=== PATIENT | female | born 1970 | race Caucasian/White ===

== ENCOUNTER 2016-10-13 21:12 | Emergency (ER) | payer SELFPAY ==
[~2016-10-13] VITALS: Ht 170.2 cm; Wt 56.0 kg
[~2016-10-13 21:12] MED LIST: BENT20TA PO; CARA1TAB6 PO; ZANT300T PO
[2016-10-13 21:14] VITALS: BP 125/74; PULSE 96; RESP 18; TEMP 98.2; O2SAT 98
[2016-10-13] MEDS ORDERED: AMOX500C PO (21:40)
[2016-10-13] MEDS ORDERED: PERI0.126 SWISH-SPIT (21:40)
--- NOTE | 2016-10-13 21:43 | PD ---
HPI Chief Complaint: Oral / Dental Pain or Problem Time Seen by Provider: 21:41 Travel History International Travel<30 days: No Contact w/Intl Traveler<30days: No Traveled to known affect area: No History of Present Illness HPI 46-year-old white female presents to emergency Department with complaints of right jaw swelling after dental extraction on Friday. Pain is mild. She is currently taking Lortab for pain. No antibiotic. No fever chills. PFSH Past Medical History Blood Disorders: No Bipolar Disorder: Yes Anxiety: No Depression: Yes Cancer: No Cardiovascular Problems: No Cerebrovascular Accident: No Diabetes: No Diminished Hearing: No Endocrine: No Gastrointestinal Disorders: Yes (ULCERATIVE COLITIS) GERD: No Genitourinary: No Headaches: Yes Hepatitis: No Hiatal Hernia: No Immune Disorder: No Implanted Vascular Access Dvce: No Musculoskeletal: No Neurologic: Yes Psychiatric: Yes Reproductive: No Respiratory: No Immunizations Current: Yes Migraines: Yes Seizures: Yes Ulcer: No Menopausal: No : 2 Para: 2 Tubal Ligation: Yes Past Surgical History Abdominal Surgery: Yes (LUCILLE) AICD: No Appendectomy: No Arteriovenous Shunt: No Cardiac Surgery: No Section: Yes (x 1) Cholecystectomy: Yes Ear Surgery: No Endocrine Surgery: No Eye Surgery: No Genitourinary Surgery: No Gynecologic Surgery: Yes (TUBAL) Insulin Pump: No Joint Replacement: No Neurologic Surgery: No Oral Surgery: No Pacemaker: No Thoracic Surgery: No Other Surgery: Yes Social History Alcohol Use: No Tobacco Use: Yes (1ppd) Substance Use: Yes (marijuana ) Allergies-Medications (Allergen,Severity, Reaction): Coded Allergies: Protonix (Verified Allergy, Intermediate, Headache, 10/13/16) DHE 45 (Verified Allergy, Mild, 10/13/16) Phenergan (Verified Allergy, Mild, ANXIETY, 10/13/16) Compazine (Verified Adverse Reaction, Severe, ANXIOUS, IRRITABLE, 10/13/16) Caffeine (Verified Adverse Reaction, Mild, HEADACHE, 10/13/16) Reported Meds & Prescriptions Reported Meds & Active Scripts Active Review of Systems Except as stated in HPI: all other systems reviewed are Neg Physical Exam Narrative GENERAL: Well-developed, well-nourished in no acute distress. Nontoxic appearing. HEAD: Normocephalic, there is minimal swelling to the right mandible. EYES: Pupils equal round and reactive. Extraocular motions intact. No scleral icterus. No injection or drainage. ENT: TMs clear without erythema. The external auditory canals clear. Nose: clear . Posterior pharynx is pink and moist. No tonsillar edema or exudate. Uvula midline. Airway patent. Patient has a dental extraction in the right lower mandible. Suture place. No drainage. Mild erythema gingival edema. No drainage. NECK: Trachea midline.Supple, nontender, moves head freely. No central bony tenderness or spasm. CARDIOVASCULAR: Regular rate and rhythm without murmurs, gallops, or rubs. RESPIRATORY: Clear to auscultation. Breath sounds equal bilaterally. No wheezes , rales, or rhonchi. GASTROINTESTINAL: Abdomen soft, non-tender, nondistended. No hepato-splenomegaly , or palpable masses. No guarding. EXTREMITIES: No clubbing, cyanosis, or edema. No joint tenderness, effusion, or edema noted. BACK: Nontender without deformity or crepitance. No flank tenderness. Data Data Last Documented VS Vital Signs Date Time Temp Pulse Resp B/P Pulse Ox O2 Delivery O2 Flow Rate FiO2 10/13/16 21:14 98.2 96 18 125/74 98 Orders Amoxicillin (Trimox) (10/13/16 21:45) MDM Medical Decision Making Medical Screen Exam Complete: Yes Emergency Medical Condition: Yes Medical Record Reviewed: Yes Differential Diagnosis MDM: Moderate Differential diagnoses: Dental abscess, dental caries, osteitis, cellulitis Narrative Course Patient's given amoxicillin 1 g by mouth. This is postop swelling Diagnosis Primary Impression: postop swelling Additional Impression: recent dental extraction Patient Instructions: General Instructions Additional Instructions: Rest. Saltwater gargles. Lovilia oil on cotton balls. 3 Advil every 6 hours. Amoxicillin and Peridex. follow-up with a dentist as soon as possible. And return to the ER if any problems. Med/Other Pt SpecificInfo: Prescription(s) given Scripts Chlorhexidine Gluconate (Mouth) Liq (Peridex Liq)0.12% Soln10 Ml SWISH-SPIT Q8HR #[id number] ML Prov:Gilmar Polk MD 10/13/16 Amoxicillin 500 Mg [id number] Mg PO TID #30 CAP Prov:Gilmar Polk MD 10/13/16 Disposition: 01 DISCHARGE HOME Condition: Stable Catracho Herrera Oct 13, 2016 21:43
[2016-10-13] MEDS ORDERED: AMOXICILLIN (TRIHYDRATE) 500 MG CAP PO ONE (21:45)
== END 2016-10-13 21:53 | disposition home or self-care (01) ==
LOC: NEPB 21:12
DX: R60.0 Localized edema (principal); Z98.818 Other dental procedure status
CPT/HCPCS: 99282

== ENCOUNTER 2016-10-20 13:05 | Emergency (ER) | payer SELFPAY ==
[~2016-10-20] VITALS: Ht 165.1 cm; Wt 60.0 kg
[~2016-10-20 13:05] MED LIST changes: +AMOX500C PO; -BENT20TA PO; -CARA1TAB6 PO; +PERI0.126 SWISH-SPIT; -ZANT300T PO
[2016-10-20 13:13] VITALS: BP 153/65; PULSE 106; RESP 24; TEMP 97.6; O2SAT 95
--- NOTE | 2016-10-20 13:47 | PD ---
HPI Chief Complaint: Psychiatric Symptoms Time Seen by Provider: 13:42 Travel History International Travel<30 days: No Contact w/Intl Traveler<30days: No Traveled to known affect area: No History of Present Illness HPI 46-year-old female that presents to the ED for evaluation of psychiatric illness. Patient comes here voluntarily for evaluation of bipolar disorder. Per patient she's been off her medications for almost 4 years now. Per patient she has no insurance and asked what she doesn't have any follow-up. Patient has no doctor. Per patient she's been feeling more stressed and anxious. Per patient and her son told her today that she should get evaluated for this and this is the reason she came here. She denies any suicidal or homicidal ideation but she does appear to be very anxious and on my examination she was crying. 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 She states that her tooth for which she was seen here just last week has improved. She states that she does abuse marijuana but denies any other substance abuse. Per patient her symptoms are moderate. Per patient she feels more stress and she feels more depressed. She states that she drinks on occasion. She denies any hallucinations. No recent injuries. She denies any other medical complaint at this time. PFSH Past Medical History Blood Disorders: No Bipolar Disorder: Yes Anxiety: No Depression: Yes Cancer: No Cardiovascular Problems: No Cerebrovascular Accident: No Diabetes: No Diminished Hearing: No Endocrine: No Gastrointestinal Disorders: Yes (ULCERATIVE COLITIS) GERD: No Genitourinary: No Headaches: Yes Hepatitis: No Hiatal Hernia: No Immune Disorder: No Implanted Vascular Access Dvce: No Musculoskeletal: No Neurologic: Yes Psychiatric: Yes (BIPOLAR) Reproductive: No Respiratory: No Immunizations Current: Yes Migraines: Yes Seizures: Yes Ulcer: No ?: Not LMP: SEP 2016 Menopausal: No : 2 Para: 2 Tubal Ligation: Yes Past Surgical History Abdominal Surgery: Yes (LUCILLE) AICD: No Appendectomy: No Arteriovenous Shunt: No Cardiac Surgery: No Section: Yes (x 1) Cholecystectomy: Yes Ear Surgery: No Endocrine Surgery: No Eye Surgery: No Genitourinary Surgery: No Gynecologic Surgery: Yes (TUBAL) Insulin Pump: No Joint Replacement: No Neurologic Surgery: No Oral Surgery: No Pacemaker: No Thoracic Surgery: No Other Surgery: Yes Social History Alcohol Use: No Tobacco Use: Yes (1ppd) Substance Use: Yes (marijuana ) Allergies-Medications (Allergen,Severity, Reaction): Coded Allergies: Protonix (Verified Allergy, Intermediate, Headache, 10/20/16) DHE 45 (Verified Allergy, Mild, 10/20/16) Phenergan (Verified Allergy, Mild, ANXIETY, 10/20/16) Compazine (Verified Adverse Reaction, Severe, ANXIOUS, IRRITABLE, 10/20/16) Caffeine (Verified Adverse Reaction, Mild, HEADACHE, 10/20/16) Reported Meds & Prescriptions Reported Meds & Active Scripts Active No Active Prescriptions or Reported Medications Review of Systems General / Constitutional: No: Fever, Chills, Weight Gain, Weight Loss, Other Eyes: No: Diploplia, Blurred Vision, Photophobia, Drainage, Redness, Foreign Body Sensation, Pain, Tearing, Blind Spots, Visual changes, Blindness, Other HENT: No: Headaches, Vertigo, Lightheadedness, Sore Throat, Rhinitis, Rhinorrhea, Congestion, Nosebleed, Neck Stiffness, Neck Pain, Masses, Gingival Bleeding, Dental Difficulties, Ear Discharge, Earache, Other Cardiovascular: No: Chest Pain or Discomfort, Palpitations, Irregular Rhythm, Tachycardia, Diaphoresis, Syncope, Dyspnea on exertion, Varicosities, Edema, Cyanosis, Varicosities, Phlebitis, Claudication, Other Respiratory: No: Cough, Shortness of Breath, Wheezing, Sneezing, Orthopnea, Hemoptysis, Stridor, Night Sweats, Pleuritic Pain, Other Gastrointestinal: No: Nausea, Vomiting, Diarrhea, Abdominal Pain, Hematemesis, Hematochezia, Constipation, Changes in Bowel Habits, Indigestion, Dysphagia, Loss of Appetite, Other Genitourinary: No: Urgency, Frequency, Dysuria, Nocturia, Hematuria, Decreased Urinary Output, Oliguria, Hesitancy, Dribbling, Incontinence, Pelvic Pain, Flank Pain, Dyspareunia, Discharge, Dysmenorrhea, Menorrhagia, Metorrhagia, Vaginal Bleeding, Other Musculoskeletal: No: Myalgias, Arthralgias, Limited ROM, Weakness, Cramping, Edema, Pain, Atrophy, Other Skin: No Rash, No Itching, No Dryness, No Lumps, No Hives, No Change in Pigmentation, No Change in nails, No Alopecia, No Lesions, No Breast Lumps, No Breast Tenderness, No Breast Swelling, No Other Neurologic: No: Weakness, Dizziness, Syncope, Focal Abnormalities, Coordination Problem, Tremor, Ataxia, Headache, Change in Mentation, Slurred Speech, Paresthesia, Incontinence, Seizures, Sensory Disturbance, Other Psychiatric: Positive: Anxiety, Depression, Mood Disorder, Substance Abuse, No : Suicidal Ideations, Disorder of Thought, Homicidal Ideation, Other Endocrine: No: Heat Intolerance, Cold Intolerance, Polyuria, Polydipsia, Other Hematologic/Lymphatic: No: Easy Bruising, Lymph Node Enlargement, Other Physical Exam Narrative GENERAL: SKIN: Warm and dry. HEAD: Atraumatic. Normocephalic. EYES: Pupils equal and round. No scleral icterus. No injection or drainage. ENT: No nasal bleeding or discharge. Mucous membranes pink and moist. Tongue is midline. No uvula deviation. NECK: Trachea midline. No JVD. CARDIOVASCULAR: Regular rate and rhythm. No murmurs, S3, S4. RESPIRATORY: No accessory muscle use. Clear to auscultation. Breath sounds equal bilaterally. GASTROINTESTINAL: Abdomen soft, non-tender, nondistended. Hepatic and splenic margins not palpable. MUSCULOSKELETAL: Extremities without clubbing, cyanosis, or edema. No obvious deformities. Full range of motion of the upper and lower extremities bilaterally. 2+ pulses bilaterally. NEUROLOGICAL: Awake and alert. No obvious cranial nerve deficits. Motor grossly within normal limits. Five out of 5 muscle strength in the arms and legs. Normal speech. PSYCHIATRIC: Anxious and depressed mood and affect; insight and judgment normal. Data Data Last Documented VS Vital Signs Date Time Temp Pulse Resp B/P Pulse Ox O2 Delivery O2 Flow Rate FiO2 10/20/16 16:43 85 16 92/51 98 Room Air 10/20/16 13:13 97.6 Orders Complete Blood Count With Diff (10/20/16 13:24) Comprehensive Metabolic Panel (10/20/16 13:24) Psych Screen (10/20/16 13:24) Drug Screen, Random Urine (10/20/16 13:24) Alcohol (Ethanol) (10/20/16 13:24) Labs Laboratory Tests Test 10/20/16 10/20/16 13:35 13:38 Urine Opiates Screen NEG Urine Barbiturates Screen NEG Urine Amphetamines Screen NEG Urine Benzodiazepines Screen POS Urine Cocaine Screen NEG Urine Cannabinoids Screen POS White Blood Count 6.4 TH/MM3 Red Blood Count 4.78 MIL/MM3 Hemoglobin 13.7 GM/DL Hematocrit 40.9 % Mean Corpuscular Volume 85.7 FL Mean Corpuscular Hemoglobin 28.7 PG Mean Corpuscular Hemoglobin 33.5 % Concent Red Cell Distribution Width 15.1 % Platelet Count 263 TH/MM3 Mean Platelet Volume 7.6 FL Neutrophils (%) (Auto) 66.5 % Lymphocytes (%) (Auto) 23.9 % Monocytes (%) (Auto) 7.3 % Eosinophils (%) (Auto) 1.5 % Basophils (%) (Auto) 0.8 % Neutrophils # (Auto) 4.3 TH/MM3 Lymphocytes # (Auto) 1.5 TH/MM3 Monocytes # (Auto) 0.5 TH/MM3 Eosinophils # (Auto) 0.1 TH/MM3 Basophils # (Auto) 0.0 TH/MM3 CBC Comment DIFF FINAL Differential Comment Sodium Level 141 MEQ/L Potassium Level 3.3 MEQ/L Chloride Level 105 MEQ/L Carbon Dioxide Level 27.3 MEQ/L Anion Gap 9 MEQ/L Blood Urea Nitrogen 13 MG/DL Creatinine 0.88 MG/DL Estimat Glomerular Filtration 69 ML/MIN Rate Random Glucose 75 MG/DL Calcium Level 9.3 MG/DL Total Bilirubin 0.9 MG/DL Aspartate Amino Transf 17 U/L (AST/SGOT) Alanine Aminotransferase 18 U/L (ALT/SGPT) Alkaline Phosphatase 85 U/L Total Protein 7.7 GM/DL Albumin 4.1 GM/DL Ethyl Alcohol Level LESS THAN 3 MG/DL MDM Medical Decision Making Medical Screen Exam Complete: Yes Emergency Medical Condition: Yes Medical Record Reviewed: Yes Interpretation(s) CBC & BMP Diagram 10/20/16 13:38 tox positive for cannabinoids and benzos Differential Diagnosis Depression versus suicidal ideation versus anxiety versus adjustment disorder versus mood disorder versus bipolar disorder versus schizophrenia versus paranoid disorder versus psychosis versus substance abuse versus alcohol abuse versus alcohol induced psychosis versus homicidality addition versus cutting versus personality disorder Narrative Course 46-year-old female that presents to the ED for evaluation of voluntary psych evaluation. Patient was properly examined and was found to have signs and symptoms very consistent what appears to be psychiatric illness. No sign of acute medical distress. Patient does appear to be somewhat stressed and depressed at this time. She denies any suicidal or homicidal ideation. Patient came here voluntarily. Patient will have blood work and voluntary psych screening. Patient was medically cleared. Okay to be seen by psych. Mental health screening was discussed with the patient. At 1730 patient adamant about leaving. Patient denies any suicidal or homicidal ideation. Patient does not want to wait to go to resume and does not want to go to resume. She wants to go home. At this time I do not feel that the patient requires Jeter acted as she does not meet any Jeter act criteria. She desaturated to herself or anybody. Patient is here voluntarily. She was made aware of her options outpatient. Told to follow-up with outpatient sources. See ED for worsening symptoms. Diagnosis Primary Impression: Bipolar 1 disorder Patient Instructions: General Instructions Additional Instructions: F/u SMA or outpatient resources. See ED if worst. Med/Other Pt SpecificInfo: No Meds Exist/No RX given Scripts No Active Prescriptions or Reported Meds Disposition: 01 DISCHARGE HOME Condition: Stable Ric Reddy Oct 20, 2016 13:47
[2016-10-20 13:57] LABS: AUTOMATED NEUTROPHIL # 4.3 TH/MM3 (1.8-7.7); BASOPHIL % 0.8 % (0.0-2.0); EOSINOPHIL # 0.1 TH/MM3 (0-0.4); EOSINOPHIL % 1.5 % (0.0-4.0); HEMATOCRIT 40.9 % (35.0-46.0); HEMO FLAGS DIFF FINAL; LYMPH % 23.9 % (9.0-44.0); LYMPHOCYTE # 1.5 TH/MM3 (1.0-4.8); MEAN CELL VOLUME 85.7 FL (80.0-100.0); MEAN CORPUSCULAR HEMOGLOBIN 28.7 PG (27.0-34.0); MEAN CORPUSCULAR HGB CONC 33.5 % (32.0-36.0); MONO % 7.3 % (0.0-8.0); NEUT % 66.5 % (16.0-70.0); PLATELET COUNT 263 TH/MM3 (150-450); RED BLOOD COUNT 4.78 MIL/MM3 (4.00-5.30); RED CELL DISTRIBUTION WIDTH 15.1 % (11.6-17.2); WHITE BLOOD COUNT 6.4 TH/MM3 (4.0-11.0)
[2016-10-20 14:03] LABS: AMPHETAMINE, URINE NEG (NEG); BARBITURATES, URINE NEG (NEG); COCAINE, URINE NEG (NEG)
[2016-10-20 14:09] LABS: ALT (GPT) 18 U/L (10-53); ANION GAP 9 MEQ/L (5-15); AST (GOT) 17 U/L (15-37); BICARBONATE 27.3 MEQ/L (21.0-32.0); BLOOD UREA NITROGEN 13 MG/DL (7-18); CHLORIDE 105 MEQ/L (98-107); GLOMERULAR FILTRATION RATE 69 ML/MIN (>89); POTASSIUM 3.3 MEQ/L (3.5-5.1); SODIUM (NA) 141 MEQ/L (136-145)
[2016-10-20 14:11] LABS: ALKALINE PHOSPHATASE 85 U/L (45-117); TOTAL BILIRUBIN ADULT 0.9 MG/DL (0.2-1.0)
[2016-10-20 16:43] VITALS: BP 92/51; PULSE 85; RESP 16; O2SAT 98
== END 2016-10-20 17:45 | disposition home or self-care (01) ==
LOC: NEPE 13:05
DX: F31.89 Other bipolar disorder (principal); F17.210 Nicotine dependence, cigarettes, uncomplicated; F12.10 Cannabis abuse, uncomplicated
CPT/HCPCS: 80053; 80307; 85025; 99284

== ENCOUNTER 2016-10-20 22:38 | Emergency (ER) | payer SELFPAY ==
[~2016-10-20] VITALS: Ht 165.1 cm; Wt 60.0 kg
[2016-10-20 22:40] VITALS: BP 133/62; PULSE 86; RESP 16; TEMP 98; O2SAT 97
--- NOTE | 2016-10-20 23:58 | PD ---
HPI Chief Complaint: Psychiatric Symptoms Time Seen by Provider: 23:39 Travel History International Travel<30 days: No Contact w/Intl Traveler<30days: No Traveled to known affect area: No History of Present Illness HPI 46yo F with PMH of bipolar disorder and migraine headache was just here earlier today for evaluation because she was feeling anxious and had left prior to psych evaluation. Pt had labs drawn and urine sent and was medically cleared for psych evaluation when she decided to leave. She came voluntarily so she was able to leave. Pt is now stating she wants to hurt herself but does not have a plan. Denies any hallucinations. Denies any fever, cough, chest pain, sob, n/v, abdominal pain, focal weakness or numbness. PFSH Past Medical History Blood Disorders: No Bipolar Disorder: Yes Anxiety: No Depression: Yes Cancer: No Cardiovascular Problems: No Cerebrovascular Accident: No Diabetes: No Diminished Hearing: No Endocrine: No Gastrointestinal Disorders: Yes (ULCERATIVE COLITIS) GERD: No Genitourinary: No Headaches: Yes Hepatitis: No Hiatal Hernia: No Immune Disorder: No Implanted Vascular Access Dvce: No Musculoskeletal: No Neurologic: Yes Psychiatric: Yes (BIPOLAR) Reproductive: No Respiratory: No Immunizations Current: Yes Migraines: Yes Seizures: Yes Ulcer: No ?: Not Menopausal: No : 2 Para: 2 Tubal Ligation: Yes Past Surgical History Abdominal Surgery: Yes (LUCILLE) AICD: No Appendectomy: No Arteriovenous Shunt: No Cardiac Surgery: No Section: Yes (x 1) Cholecystectomy: Yes Ear Surgery: No Endocrine Surgery: No Eye Surgery: No Genitourinary Surgery: No Gynecologic Surgery: Yes (TUBAL) Insulin Pump: No Joint Replacement: No Neurologic Surgery: No Oral Surgery: No Pacemaker: No Thoracic Surgery: No Other Surgery: Yes Social History Alcohol Use: No Tobacco Use: Yes (1ppd) Substance Use: Yes (MARIJUANA) Allergies-Medications (Allergen,Severity, Reaction): Coded Allergies: Protonix (Verified Allergy, Intermediate, Headache, 10/20/16) DHE 45 (Verified Allergy, Mild, 10/20/16) Phenergan (Verified Allergy, Mild, ANXIETY, 10/20/16) Compazine (Verified Adverse Reaction, Severe, ANXIOUS, IRRITABLE, 10/20/16) Caffeine (Verified Adverse Reaction, Mild, HEADACHE, 3/12/17) Reported Meds & Prescriptions Reported Meds & Active Scripts Active No Active Prescriptions or Reported Medications Review of Systems Except as stated in HPI: all other systems reviewed are Neg Physical Exam Narrative GENERAL: 46yo F not in distress. At times tearful and at times angry. SKIN: Warm and dry. HEAD: Atraumatic. Normocephalic. EYES: Pupils equal and round at 3mm bilaterally. EOMI. No scleral icterus. No injection or drainage. NECK: Trachea midline. No JVD. CARDIOVASCULAR: Regular rate and rhythm. No murmur appreciated. RESPIRATORY: No accessory muscle use. Clear to auscultation. Breath sounds equal bilaterally. GASTROINTESTINAL: Abdomen soft, non-tender, nondistended. No rebound tenderness or guarding. MUSCULOSKELETAL: No obvious deformities. No clubbing. No cyanosis. No edema. NEUROLOGICAL: Awake and alert. No obvious cranial nerve deficits. Motor grossly within normal limits. Normal speech. PSYCHIATRIC: Labile mood; pt becomes upset that we keep asking the same questions. Data Data Last Documented VS Vital Signs Date Time Temp Pulse Resp B/P Pulse Ox O2 Delivery O2 Flow Rate FiO2 10/20/16 23:35 18 10/20/16 22:40 98.0 86 133/62 97 Room Air Orders Psych Screen (10/20/16 23:50) MDM Medical Decision Making Medical Screen Exam Complete: Yes Emergency Medical Condition: Yes Differential Diagnosis Bipolar disorder vs. depression vs. psychosis vs. drug induced psychosis. Narrative Course 46yo F with bipolar disorder presents to the ED because she needs help. Pt was just here this morning and medically cleared for psych evaluation. Pt had labs drawn this morning and does not want more lab drawn. I believe that it is reasonable to use today's labs which I reviewed. No leukocytosis. K was 3.3 and pt is tolerating PO. Urine drug screen was positive for benzodiazepine and cannabinoids. Pt does not appear clinically intoxicated to me. No signs of trauma. VS wnl. Pt is medically clear for psych evaluation. Although pt came in voluntarily, she is stating that she has suicidal ideations and want to hurt herself. It is also noted in the nursing triage note. She did state that to me but does not have a plan. She does appear to have labile mood and reports history of bipolar disorder. She states she is not taking any medications for her bipolar disorder. I will place her under Jeter Act since she is a threat to herself until psych evaluates her. Diagnosis Primary Impression: Bipolar 1 disorder Scripts No Active Prescriptions or Reported Meds Maria Antonia Castañeda DO Oct 20, 2016 23:58
[2016-10-21 01:58] VITALS: BP 100/50; PULSE 69; RESP 18; TEMP 98.1; O2SAT 99
[2016-10-21 06:41] VITALS: BP 101/50; PULSE 68; RESP 18; O2SAT 100
[2016-10-21 07:20] VITALS: BP 108/67; PULSE 81; RESP 16; TEMP 98; O2SAT 99
[2016-10-21 10:00] VITALS: BP 102/69; PULSE 67; RESP 16; TEMP 97.8; O2SAT 99
--- NOTE | 2016-10-21 14:45 | PD.CONS ---
Provisional Diagnosis [place] I. Emotionally unstable borderline personality disorder and adult F 60.3, marijuana abuse by history History of Present Illness Service Psychiatry Consult Requested By EDMD Reason for Consult Corona montez Primary Care Physician No Primary Care Physician HPI Patient is a 46-year-old white female who was seen here yesterday homeless assessed and discharge urine toxicology at bedtime positive for marijuana and benzodiazepines. Patient returns here today voluntarily asking for help perhaps some degree of manipulation related to living situation was Corona acted in the ED today by Dr. Castañeda dated 10/21/12 Corona montez reviewed basically stating the patient appeared to have a labile mood and said she is suicidal. Patient again being screened in ED. Patient seen by me with nurse Brian and medical student Isamar. Patient has a labile angry irritable demanding entitled white female somewhat disheveled in appearance stating a lifelong history of chaos relationship issues. Stating she's been here [place] since about 2005. It appears she has been disowned by her family up in [place]. That she gave her child up to the child's father because she could not handle. She states she has never had successful treatment either by a psychiatrist or by counselors that she has no dejuan of them show something to do with them. It appears she was hospitalized Mr. Christiano montez a number of years ago but less their early Ms. been noncompliant with any medications. She denies any benefit from any medications. She does state he smokes marijuana every day as much as she can. In any event I feel this is a marked degree of manipulation with this lady she made some vague suicidal statements I feel this is an effort to get a place to stay. When I questioned her validity she became anger at me and attempts to get into any details related to refuse became more angry and said that she is wish to be discharged. I did allow that. Braulio is also modicum of malingering. Thus I will lift the Jeter act allow the patient to be discharged herself to follow-up with Tavon Christiano montez. The been no Rx by me strong recommendation for and a. Strong recommendation voluntary substance abuse assessment Mr. Christiano montez when I mention the possibility of her participating and the [employer] outpatient community-based support groups she refused saying she does not like to talk in front of people Review of Systems Except as stated in HPI: all other systems reviewed are Neg Past Family Social History Coded Allergies: Protonix (Verified Allergy, Intermediate, Headache, 10/20/16) DHE 45 (Verified Allergy, Mild, 10/20/16) Phenergan (Verified Allergy, Mild, ANXIETY, 10/20/16) Compazine (Verified Adverse Reaction, Severe, ANXIOUS, IRRITABLE, 10/20/16) Caffeine (Verified Adverse Reaction, Mild, HEADACHE, 10/20/16) Past Medical History Unknown at this time though that appears to be a history of migraines No Active Prescriptions or Reported Meds Family History Patient is estranged from her family of origin and extended family Social History It appears patient does have place to stay with a male friend of her though she is unemployed at the present time his limited finances Patient's Strengths (min. 2) Patient verbal irritable access healthcare Physical Exam Patient medically cleared through ED exam reviewed and agreed with Vital Signs Vital Signs Date Time Temp Pulse Resp B/P Pulse Ox O2 Delivery O2 Flow Rate FiO2 10/21/16 10:00 97.8 67 16 102/69 99 10/21/16 07:20 Room Air Mental Status Examination Alert oriented angry irritable labile manipulative borderline female Appearance Somewhat disheveled wearing a bandanna over here Speech: Pressured, Rapid Orientation: x3 Memory: Impaired (describe) Thought Process: Logical, Linear Thought Content: Paranoid (mildly) Hallucination Type: None Attention and Concentration: Other (fair) Suicidal Ideation: No (made vague statements I feel this is more manipulative than legitimate) Previous Suicide Attempts: No Homicidal Ideation: No Previous Homicide Attempts: No Insight: Poor Affect: Other (increase range and intensity) Mood: Euthymic, Irritable Motor Activity: Normal gait Assessment & Plan Problem List: (1) Emotionally unstable borderline personality disorder in adult ICD Code: F60.3 (2) History of cannabis abuse ICD Code: Z87.898 Assessment & Plan At this time patient does not meet Jeter criteria will lift Jeter act. There is significant degree of borderline personality disorder manipulation and perhaps malingering. Strong recommendation voluntary assessment act subsequent abuse assessment related to stated marijuana abuse, follow-up mental health also through Estimated LOS: days Discharge Planning See above Request HC Surrog/Guard Advoc?: No Zay Smith MD Oct 21, 2016 14:45
== END 2016-10-21 14:27 | disposition home or self-care (01) ==
LOC: NEPA 22:38
DX: F60.3 Borderline personality disorder (principal); F12.10 Cannabis abuse, uncomplicated; Z59.0 Homelessness
CPT/HCPCS: 99283

== ENCOUNTER 2016-10-21 18:17 | Emergency (ER) | payer OTHER ==
--- NOTE | 2016-10-21 18:26 | PD ---
HPI Chief Complaint: ba Time Seen by Provider: 18:25 Travel History International Travel<30 days: No Contact w/Intl Traveler<30days: No Traveled to known affect area: No History of Present Illness HPI 46 year-old female presents to emergency department for evaluation a [place]. Patient has history of bipolar disorder and has been seen 2 times the last 2 days. Emergency department. She states that she is suicidal with an active plan. She states she has "at least 60 amitriptyline that she plans to take." Denies taking anything up to this point. Reports marijuana use and taking a benzo 2 days ago. Denies any acute medical needs. Note symptoms to report. PFSH Past Medical History Blood Disorders: No Bipolar Disorder: Yes Anxiety: No Depression: Yes Cancer: No Cardiovascular Problems: No Cerebrovascular Accident: No Diabetes: No Diminished Hearing: No Endocrine: No Gastrointestinal Disorders: Yes (ULCERATIVE COLITIS) GERD: No Genitourinary: No Headaches: Yes Hepatitis: No Hiatal Hernia: No Immune Disorder: No Implanted Vascular Access Dvce: No Musculoskeletal: No Neurologic: Yes Psychiatric: Yes (BIPOLAR) Reproductive: No Respiratory: No Immunizations Current: Yes Migraines: Yes Seizures: Yes Ulcer: No Menopausal: No : 2 Para: 2 Tubal Ligation: Yes Past Surgical History Abdominal Surgery: Yes (LUCILLE) AICD: No Appendectomy: No Arteriovenous Shunt: No Cardiac Surgery: No Section: Yes (x 1) Cholecystectomy: Yes Ear Surgery: No Endocrine Surgery: No Eye Surgery: No Genitourinary Surgery: No Gynecologic Surgery: Yes (TUBAL) Insulin Pump: No Joint Replacement: No Neurologic Surgery: No Oral Surgery: No Pacemaker: No Thoracic Surgery: No Other Surgery: Yes Social History Alcohol Use: No Tobacco Use: Yes (1ppd) Substance Use: Yes (MARIJUANA, BENZO'S) Allergies-Medications (Allergen,Severity, Reaction): Coded Allergies: Protonix (Verified Allergy, Intermediate, Headache, 10/21/16) DHE 45 (Verified Allergy, Mild, 10/21/16) Phenergan (Verified Allergy, Mild, ANXIETY, 10/21/16) Compazine (Verified Adverse Reaction, Severe, ANXIOUS, IRRITABLE, 10/21/16) Caffeine (Verified Adverse Reaction, Mild, HEADACHE, 10/21/16) Reported Meds & Prescriptions Reported Meds & Active Scripts Active No Active Prescriptions or Reported Medications Review of Systems Except as stated in HPI: all other systems reviewed are Neg Physical Exam Narrative GENERAL: Well-nourished, well-developed female patient, in no acute distress SKIN: Warm and dry. HEAD: Normocephalic. EYES: No scleral icterus. No injection or drainage. NECK: Supple, trachea midline. No JVD or lymphadenopathy. CARDIOVASCULAR: Regular rate and rhythm without murmurs, gallops, or rubs. RESPIRATORY: Breath sounds equal bilaterally. No accessory muscle use. GASTROINTESTINAL: Abdomen soft, non-tender, nondistended. MUSCULOSKELETAL: No cyanosis, or edema. BACK: Nontender without obvious deformity. No CVA tenderness. Data Data Orders Psych Screen (10/21/16 18:32) MDM Medical Decision Making Medical Screen Exam Complete: Yes Emergency Medical Condition: Yes Medical Record Reviewed: Yes Differential Diagnosis Mood disorder versus personality disorder versus adjustment reaction disorder Narrative Course 46-year-old female presents to emergency department for evaluation under a Jeter act. Patient appears without distress. She was discharged this morning after psychiatric screening and seems psychiatrist. Patient states that she should have never been discharged and she has an active plan for suicide. Labs were completed yesterday. Patient will be medically cleared at this time Mental health screening discussed with the patient. Psychiatric screen ordered. Diagnosis Primary Impression: Bipolar 1 disorder Scripts No Active Prescriptions or Reported Meds Condition: Sary Christian Oct 21, 2016 18:26
[2016-10-22 11:10] VITALS: BP 112/69; PULSE 80; RESP 18; TEMP 98.1; O2SAT 98
--- NOTE | 2016-10-22 12:54 | PD ---
History of Present Illness Chief Complaint: Psychiatric Symptoms Time Seen by Provider: 12:15 Travel History International Travel<30 Days: No Contact w/Intl Traveler<30days: No Known affected area: No Legal Status Legal Status: Jeter Act Jeter Act Signed By: Teddy Tim History of Present Illness: History of Present Illness HPI 46 year-old female with a reported history of bipolar disorder who presents to emergency department for evaluation of a Jeter initiated by [facility]. As per the BA report she "advised she wants to kill herself by running into traffic." Patient has been seen in ED 2 times in the last 2 days. per ED documentation included in this report " She states that she is suicidal with an active plan. She states she has "at least 60 amitriptyline that she plans to take." Denies taking anything up to this point. Reports marijuana use and taking a benzo 2 days ago." EMR is reviewed. Evaluation completed by Dr. Sal Smith is also reviewed. Last toxicology report is positive for benzos and cannabinoids. Patient was monitored in Ed and later in J pod. She presented with no behavioral concerns and no suicidality. This morning she is awake, alert, oriented. She is angry as she reports that she is missing her wallet and her telephone. She states that she does not know why the police brought her here and that she was in her house when " they knocked on my door and brought me here". She denies any suicidal or homicidal ideation, intent or plan. No psychosis. She goes on to state " I don't want any psychiatric treatment". She demands to be discharged from this facility as and states " you can't meet my dietary requests as I eat only natural food". Patient ias angry and demands that staff return her her money as well as get her a new phone. Staff has informed her of procedure to file for missing items. She refuses to accept a taxi voucher to get home. PFSH Past Medical History Blood Disorders: No Bipolar Disorder: Yes Anxiety: No Depression: Yes Cancer: No Cardiovascular Problems: No Cerebrovascular Accident: No Diabetes: No Diminished Hearing: No Endocrine: No Gastrointestinal Disorders: Yes (ULCERATIVE COLITIS) GERD: No Genitourinary: No Headaches: Yes Hepatitis: No Hiatal Hernia: No Immune Disorder: No Implanted Vascular Access Dvce: No Musculoskeletal: No Neurologic: Yes Psychiatric: Yes (BIPOLAR) Reproductive: No Respiratory: No Immunizations Current: Yes Migraines: Yes Seizures: Yes Ulcer: No Tetanus Vaccination: > 5 Years ?: Not Menopausal: No : 2 Para: 2 Tubal Ligation: Yes Past Surgical History Abdominal Surgery: Yes (LUCILLE) AICD: No Appendectomy: No Arteriovenous Shunt: No Cardiac Surgery: No Section: Yes (x 1) Cholecystectomy: Yes Ear Surgery: No Endocrine Surgery: No Eye Surgery: No Genitourinary Surgery: No Gynecologic Surgery: Yes (TUBAL) Insulin Pump: No Joint Replacement: No Neurologic Surgery: No Oral Surgery: No Pacemaker: No Thoracic Surgery: No Other Surgery: Yes Psychiatric History Psychiatric History Hx Psychiatric Treatment: REPORTS HX OF BEING DIAGNOSED WITH BIPOLAR, DEPRESSION AND EATING DISORDER. WAS LAST ADMITTED TO [facility] 4 YRS AGO, VOLUNTARILY. SHE WAS NOT IMPRESSED WITH THE CLEANLINESS AND INABILITY TO MEET HER DIETARY NEEDS. History of Inpatient Treatment: Yes Guns or firearms in home: No Social History Single female. Homeless but stays with a friend Hx Alcohol Use: No Hx Tobacco Use: Yes (1ppd) Hx Substance Use: Yes (MARIJUANA, BENZO'S) Substance Use Type: Marijuana, Benzos (Valium,Xanax) Hx of Substance Use Treatment: No Family Psychiatric History Patient does not provide Allergies-Medications (Allergen,Severity, Reaction): Coded Allergies: Protonix (Verified Allergy, Intermediate, Headache, 10/21/16) DHE 45 (Verified Allergy, Mild, 10/21/16) Phenergan (Verified Allergy, Mild, ANXIETY, 10/21/16) Compazine (Verified Adverse Reaction, Severe, ANXIOUS, IRRITABLE, 10/21/16) Caffeine (Verified Adverse Reaction, Mild, HEADACHE, 10/21/16) Reported Meds & Prescriptions Reported Meds & Active Scripts Active No Active Prescriptions or Reported Medications Review of Systems Except as stated in HPI: all other systems reviewed are Neg Exam Alert: Yes [place]: Person (ox4) Mood: Angry Affect: Other (congruent) Speech: Clear, Logical Eye Contact: Normal Memory Intact: Comment (not impaired) Delusions: No Suicidal: Ideation (negative) Homicidal: Ideation (negative) Insight/Judgement poor, not impaired. MDM Medical Decision Making Medical Record Reviewed: Yes Assessment/Plan 46 year old female who is under a BA for allegedly reporting suicidal ideation. At this time she denies that she had any intentions of harming herself and actually states that the police picked her up without her calling them. She is denying suicidal or homicidal ideation and she is refusing psychiatric care. She is demanding discharge from J pod. At this time she does not meet criteria for BA and will be discharged Orders Psych Screen (10/21/16 18:32) Diet Regular Basic (10/22/16 Breakfast) Diet Regular Basic (10/22/16 Lunch) Results Vital Signs Date Time Temp Pulse Resp B/P Pulse Ox O2 Delivery O2 Flow Rate FiO2 10/22/16 11:10 98.1 80 18 112/69 98 Room Air Diagnosis Primary Impression: Bipolar 1 disorder Psychiatrically Cleared: Yes Departure Forms: Tests/Procedures Patient Instructions: General Instructions, Mood Disorders (ED) Additional Instructions: FOLLOW UP OUT PATIENT AT [facility] AT [address] [facility] FOR [facility]SEL[facility] AND OR MEDICATION MANAGEMENT Prescriptions No Active Prescriptions or Reported Meds Disposition: DISCHARGE HOME Condition: Stable Brenda Tamez CHING Oct 22, 2016 12:54
== END 2016-10-22 13:08 | disposition home or self-care (01) ==
LOC: NEPA 18:17 → NEPJ 10-22 13:08
DX: F31.9 Bipolar disorder, unspecified (principal); F17.200 Nicotine dependence, unspecified, uncomplicated; Z86.59 Personal history of other mental and behavioral disorders; Z87.19 Personal history of other diseases of the digestive system; Z86.69 Personal history of other diseases of the nervous system and sense organs
CPT/HCPCS: 99283

== ENCOUNTER 2017-03-22 00:42 | Emergency (ER) | payer SELFPAY ==
[~2017-03-22] VITALS: Ht 165.1 cm; Wt 60.0 kg
[2017-03-22 00:56] VITALS: BP 110/66; PULSE 100; RESP 14; TEMP 98.4; O2SAT 98
[2017-03-22] MEDS ORDERED: IMIT100T PO (01:42)
[2017-03-22] MEDS ORDERED: LAMO100 PO (01:42)
[2017-03-22] MEDS ORDERED: PERM5CRE11 TOPICAL (01:58)
[2017-03-22] MEDS ORDERED: BACT800T5 PO (01:58)
--- NOTE | 2017-03-22 02:02 | PD ---
HPI Chief Complaint: Skin Problem Time Seen by Provider: 01:59 Travel History International Travel<30 days: No Contact w/Intl Traveler<30days: No Traveled to known affect area: No History of Present Illness HPI 46-year-old white female presents to emergency department with complaints of possible scabies. She states that she has had similar type symptoms in the past and was treated for scabies which resolved. She states that she has a pruritic rash with trailing on her arms and legs. She has multiple pets including cats and dogs. PFSH Past Medical History Blood Disorders: No Bipolar Disorder: Yes Anxiety: No Depression: Yes Cancer: No Cardiovascular Problems: No Cerebrovascular Accident: No Diabetes: No Patient Takes Glucophage: No Diminished Hearing: No Endocrine: No Gastrointestinal Disorders: Yes (ULCERATIVE COLITIS) GERD: No Genitourinary: No Headaches: Yes Hepatitis: No Hiatal Hernia: No Immune Disorder: No Implanted Vascular Access Dvce: No Musculoskeletal: No Neurologic: Yes Psychiatric: Yes (BIPOLAR) Reproductive: No Respiratory: No Immunizations Current: Yes Migraines: Yes Seizures: Yes Ulcer: No Influenza Vaccination: No ?: Unknown LMP: CURRENT Menopausal: No : 2 Para: 2 Tubal Ligation: Yes Past Surgical History Abdominal Surgery: Yes (LUCILLE) AICD: No Appendectomy: No Arteriovenous Shunt: No Cardiac Surgery: No Section: Yes (x 1) Cholecystectomy: Yes Ear Surgery: No Endocrine Surgery: No Eye Surgery: No Genitourinary Surgery: No Gynecologic Surgery: Yes (TUBAL) Insulin Pump: No Joint Replacement: No Neurologic Surgery: No Oral Surgery: No Pacemaker: No Thoracic Surgery: No Other Surgery: Yes Social History Alcohol Use: No Tobacco Use: Yes (1ppd) Substance Use: Yes (MARIJUANA, BENZO'S) Allergies-Medications (Allergen,Severity, Reaction): Coded Allergies: Protonix (Verified Allergy, Intermediate, Headache, 03/22/17) DHE 45 (Verified Allergy, Mild, 03/22/17) Phenergan (Verified Allergy, Mild, ANXIETY, 03/22/17) Compazine (Verified Adverse Reaction, Severe, ANXIOUS, IRRITABLE, 03/22/17) Caffeine (Verified Adverse Reaction, Mild, HEADACHE, 03/22/17) Reported Meds & Prescriptions Reported Meds & Active Scripts Active Bactrim DS (Sulfamethoxazole-Trimethoprim) 800-160 Mg Tab 1 Tab PO BID Elimite Topical (Permethrin) 5% Cream 1 Applic TOPICAL ONCE Reported Imitrex (Sumatriptan Succinate) 100 Mg Tab 100 Mg PO ONCE PRN If a satisfactory response has not been obtained at 2 hours, a second dose may be administered Lamictal (Lamotrigine) 100 Mg Tab 100 Mg PO BID Review of Systems Except as stated in HPI: all other systems reviewed are Neg Physical Exam Narrative GENERAL: This is a well-nourished, well-developed patient, in no apparent distress. SKIN: Patient has few macular papular lesions on the upper or lower extremities. She does have a few small trilling questional serpiginous trails. , ecchymoses or lesions. Warm and dry. HEAD: Atraumatic. Normocephalic. EYES: PERRL, EOMI, no discharge or injection. No scleral icterus. EARS: Clear NOSE: Nasal turbinates appear normal. THROAT: Mucosa pink and moist. Airway patent. NECK: Trachea midline. supple, moves head freely. LUNGS: Clear to auscultation. CV: Regular in rhythm. ABDOMEN: Soft nontender. EXT: No clubbing cyanosis or edema. Data Data Last Documented VS Vital Signs Date Time Temp Pulse Resp B/P Pulse Ox O2 Delivery O2 Flow Rate FiO2 03/22/17 00:56 98.4 100 14 110/66 98 Room Air MDM Medical Decision Making Medical Screen Exam Complete: Yes Emergency Medical Condition: Yes Medical Record Reviewed: Yes Differential Diagnosis Differential diagnosis: Scabies, contact dermatitis, folliculitis Narrative Course The patient is convinced that this is scabies. I'm not 100% fence. This may be a folliculitis. Patient be given Bactrim DS and Elimite Diagnosis Primary Impression: Folliculitis Additional Impression: Scabies Patient Instructions: General Instructions Additional Instructions: Rest. Daily wound care with soap, water, Neosporin. Elimite and Bactrim DS. Benadryl 50 mg every 4 hours as needed for itching. Follow-up with a medical doctor in the next 3-5 days. Return to the ER if any problems. Med/Other Pt SpecificInfo: Prescription(s) given Scripts Sulfamethoxazole-Trimethoprim (Bactrim DS)800-160 Mg Tab1 Tab PO BID #14 TAB Prov:Paige Riley MD 03/22/17 Permethrin Topical (Elimite Topical)5% Cream1 Applic TOPICAL ONCE #1 TUBE Prov:Paige Riley MD 03/22/17 Disposition: 01 DISCHARGE HOME Condition: Stable Catracho Herrera Mar 22, 2017 02:02
== END 2017-03-22 02:14 | disposition home or self-care (01) ==
LOC: NEPD 00:42
DX: L73.9 Follicular disorder, unspecified (principal); B86 Scabies; F31.9 Bipolar disorder, unspecified; K51.90 Ulcerative colitis, unspecified, without complications; R56.9 Unspecified convulsions; F17.200 Nicotine dependence, unspecified, uncomplicated; Z88.5 Allergy status to narcotic agent; Z88.8 Allergy status to other drugs, medicaments and biological substances; Z79.899 Other long term (current) drug therapy
CPT/HCPCS: 99283

== ENCOUNTER 2017-12-09 08:38 | Emergency (ER) | payer SELFPAY ==
[~2017-12-09] VITALS: Ht 165.1 cm; Wt 63.0 kg
[~2017-12-09 08:38] MED LIST changes: -AMOX500C PO; +BACL10TA PO; +HYDR-3516 PO; +IMIT100T PO; +KETO10 PO; +LAMO100 PO; -PERI0.126 SWISH-SPIT; +PERM5CRE11 TOPICAL; +SERO50TA PO
[2017-12-09 08:40] VITALS: BP 118/62; PULSE 104; RESP 20; TEMP 97.7; O2SAT 99
[2017-12-09] MEDS ORDERED: SUMAtriptan INJ 6 MG/0.5 ML VIAL SQ ONE (09:30)
--- NOTE | 2017-12-09 09:39 | PD ---
HPI Chief Complaint: Headache Time Seen by Provider: 08:50 Travel History International Travel<30 days: No Contact w/Intl Traveler<30days: No Traveled to known affect area: No History of Present Illness HPI The patient is a 47-year-old female who presents to the emergency department for headache. The patient states she has a history of migraines, has been under a lot of stress recently, and started a. The patient took 2 doses of Imitrex last night and another dose this morning without any alleviation of her symptoms. She is requesting Imitrex subcutaneously. She does have a history of migraines but is no longer she denies any focal weakness of the upper or lower extremities. She does note a history of migraines with similar symptoms in the past. She denies any thunderclap quality. She denies any posterior neck pain, fever, chills, or sweats. Symptoms are moderate. PFSH Past Medical History Blood Disorders: No Bipolar Disorder: Yes Anxiety: Yes Depression: Yes Cancer: No Cardiovascular Problems: No Cerebrovascular Accident: No Diabetes: No Diminished Hearing: No Endocrine: No Gastrointestinal Disorders: Yes (ULCERATIVE COLITIS) GERD: No Genitourinary: No Headaches: Yes Hepatitis: No Hiatal Hernia: No Immune Disorder: No Implanted Vascular Access Dvce: No Musculoskeletal: No Neurologic: Yes Psychiatric: Yes (BIPOLAR) Reproductive: No Respiratory: No Immunizations Current: Yes Migraines: Yes Seizures: Yes Ulcer: No ?: Not LMP: [place]BL[place] Menopausal: No : 2 Para: 2 Tubal Ligation: Yes Past Surgical History Abdominal Surgery: Yes (LUCILLE) AICD: No Appendectomy: No Arteriovenous Shunt: No Cardiac Surgery: No Section: Yes (x 1) Cholecystectomy: Yes Ear Surgery: No Endocrine Surgery: No Eye Surgery: No Genitourinary Surgery: No Gynecologic Surgery: Yes (TUBAL) Insulin Pump: No Joint Replacement: No Neurologic Surgery: No Oral Surgery: No Pacemaker: No Thoracic Surgery: No Other Surgery: Yes Social History Alcohol Use: No Tobacco Use: Yes (1ppd) Substance Use: Yes (MARIJUANA, BENZO'S) Allergies-Medications (Allergen,Severity, Reaction): Coded Allergies: pantoprazole (Unverified Allergy, Intermediate, Headache, 12/09/17) dihydroergotamine (Unverified Allergy, Mild, 12/09/17) promethazine (Unverified Allergy, Mild, ANXIETY, 12/09/17) prochlorperazine (Unverified Adverse Reaction, Severe, ANXIOUS, IRRITABLE , 12/09/17) caffeine (Unverified Adverse Reaction, Mild, HEADACHE, 12/09/17) Reported Meds & Prescriptions Reported Meds & Active Scripts Active Ketorolac (Ketorolac Tromethamine) 10 Mg Tab 10 Mg PO TID PRN Baclofen 10 Mg Tab 10 Mg PO TID Elimite Topical (Permethrin) 5% Cream 1 Applic TOPICAL ONCE Reported Seroquel (Quetiapine Fumarate) 50 Mg Tab 50 Mg PO HS Hydrocodone-Acetaminophen 5-325 mg Tab 1 Tab PO Q4H PRN Imitrex (Sumatriptan Succinate) 100 Mg Tab 100 Mg PO ONCE PRN If a satisfactory response has not been obtained at 2 hours, a second dose may be administered Lamictal (Lamotrigine) 100 Mg Tab 100 Mg PO BID Review of Systems Except as stated in HPI: all other systems reviewed are Neg General / Constitutional: No: Fever Eyes: Positive: Photophobia, No: Blurred Vision HENT: Positive: Headaches, No: Neck Stiffness, Neck Pain Cardiovascular: No: Chest Pain or Discomfort Respiratory: No: Shortness of Breath Gastrointestinal: Positive: Nausea, Vomiting, No: Abdominal Pain Neurologic: Positive: Headache, No: Dizziness, Paresthesia, Sensory Disturbance Physical Exam Narrative GENERAL: Awake, alert, nontoxic-appearing 47-year-old male who appears his stated age and is in no acute respiratory distress. SKIN: Focused skin assessment warm/dry. HEAD: Atraumatic. Normocephalic. EYES: Pupils equal and round. 3 mm bilateral and reactive. ENT: No nasal bleeding or discharge. Mucous membranes pink and moist. NECK: Trachea midline. No JVD. CARDIOVASCULAR: Regular rate and rhythm. No murmur appreciated. RESPIRATORY: No accessory muscle use. Clear to auscultation. Breath sounds equal bilaterally. GASTROINTESTINAL: Abdomen soft, non-tender, nondistended. No rebound tenderness. MUSCULOSKELETAL: No obvious deformities. No clubbing. No cyanosis. No edema. NEUROLOGICAL: Awake and alert. No obvious cranial nerve deficits. Motor grossly within normal limits. Normal speech. Nonfocal. PSYCHIATRIC: Appropriate mood and affect; insight and judgment normal. Data Data Last Documented VS Vital Signs Date Time Temp Pulse Resp B/P (MAP) Pulse Ox O2 Delivery O2 Flow Rate FiO2 12/09/17 08:40 97.7 104 20 118/62 (80) 99 Orders Orders Sumatriptan Inj (Imitrex Inj) (12/09/17 09:30) Ketorolac Inj (Toradol Inj) (12/09/17 10:30) Ed Discharge Order (12/09/17 10:53) MDM Medical Decision Making Medical Screen Exam Complete: Yes Emergency Medical Condition: Yes Medical Record Reviewed: Yes Differential Diagnosis Differential diagnosis includes migraine, tension headache, sinusitis, intracranial hemorrhage, subarachnoid hemorrhage, cluster headache. Narrative Course I had a discussion with the patient regarding IV placement and migraine cocktail including Reglan, Toradol, Solu-Medrol, and IV fluids. The patient states she cannot have Benadryl secondary to the anticholinergic effects, states that exacerbates her headache. She is requesting Imitrex 6 mg subcutaneously. Therefore, the patient was ordered Imitrex 6 mg subcutaneously and then was reevaluated 1 hour later. The patient's pain had improved until , she requested Toradol IM. Therefore, the patient was administered Toradol 60 mg IM. The patient was reassessed once again at 10:55 AM, her pain had improved and she feels well enough to go home. She is advised to return if symptoms worsen or progress. She is advised to follow-up with her primary physician. Diagnosis Primary Impression: Cephalgia Qualified Codes: R51 - Headache Patient Instructions: General Instructions Additional Instructions: Follow-up with your primary physician. Return if symptoms worsen or progress. Disposition: 01 DISCHARGE HOME Condition: Stable Vito Santiago MD December 09, 2017 09:39
[2017-12-09] MEDS ORDERED: KETOROLAC TROMETHAMINE 60 MG/2 ML (IM) VIAL IM ONE (10:30)
== END 2017-12-09 11:57 | disposition home or self-care (01) ==
LOC: NEPC 08:38
DX: R51 Headache (principal); F31.9 Bipolar disorder, unspecified; F17.200 Nicotine dependence, unspecified, uncomplicated; F12.90 Cannabis use, unspecified, uncomplicated
CPT/HCPCS: 96372; 99283; J1885; J3030

== ENCOUNTER 2018-01-14 17:28 | Emergency (ER) | payer SELFPAY ==
[~2018-01-14] VITALS: Ht 167.6 cm; Wt 63.5 kg
[2018-01-14 17:45] VITALS: BP 110/61; PULSE 81; RESP 16; TEMP 98; O2SAT 98
[2018-01-14] MEDS ORDERED: LAMI200T PO (18:11)
--- NOTE | 2018-01-14 19:03 | PD ---
HPI Chief Complaint: ENT Complaint Time Seen by Provider: 17:52 Travel History International Travel<30 days: No Contact w/Intl Traveler<30days: No Traveled to known affect area: No History of Present Illness HPI The patient was seen and examined in the presence of the nurse. This patient complains of foreign body stuck in her throat. She was eating a lollipop earlier today and felt like a piece of it is lodged in her throat. She is able to talk and swallow and breathe fine. Symptom severity is mild. She says this is happened at least a dozen times over the last year. Duration 4 hours PFSH Past Medical History Blood Disorders: No Bipolar Disorder: Yes Anxiety: Yes Depression: Yes Cancer: No Cardiovascular Problems: No Cerebrovascular Accident: No Diabetes: No Diminished Hearing: No Endocrine: No Gastrointestinal Disorders: Yes (ULCERATIVE COLITIS) GERD: No Genitourinary: No Headaches: Yes Hepatitis: No Hiatal Hernia: No Immune Disorder: No Implanted Vascular Access Dvce: No Musculoskeletal: No Neurologic: Yes Psychiatric: Yes (BIPOLAR) Reproductive: No Respiratory: No Immunizations Current: Yes Migraines: Yes Seizures: Yes Ulcer: No Influenza Vaccination: No ?: Not LMP: ablation Menopausal: No : 2 Para: 2 Tubal Ligation: Yes Past Surgical History Abdominal Surgery: Yes ([place]UC[place]) AICD: No Appendectomy: No Arteriovenous Shunt: No Cardiac Surgery: No Section: Yes (x 1) Cholecystectomy: Yes Ear Surgery: No Endocrine Surgery: No Eye Surgery: No Genitourinary Surgery: No Gynecologic Surgery: Yes (TUBAL, UTERINE ABLATION) Insulin Pump: No Joint Replacement: No Neurologic Surgery: No Oral Surgery: No Pacemaker: No Thoracic Surgery: No Other Surgery: Yes Social History Alcohol Use: No Tobacco Use: Yes (1ppd) Substance Use: Yes (MARIJUANA) Allergies-Medications (Allergen,Severity, Reaction): Coded Allergies: pantoprazole (Unverified Allergy, Intermediate, Headache, 01/14/18) dihydroergotamine (Unverified Allergy, Mild, 01/14/18) promethazine (Unverified Allergy, Mild, ANXIETY, 01/14/18) prochlorperazine (Unverified Adverse Reaction, Severe, ANXIOUS, IRRITABLE , 01/14/18) caffeine (Unverified Adverse Reaction, Mild, HEADACHE, 01/14/18) Reported Meds & Prescriptions Reported Meds & Active Scripts Active Reported Lamictal (Lamotrigine) 200 Mg Tab 250 Mg PO HS Seroquel (Quetiapine Fumarate) 50 Mg Tab 50 Mg PO HS Imitrex (Sumatriptan Succinate) 100 Mg Tab 100 Mg PO ONCE PRN If a satisfactory response has not been obtained at 2 hours, a second dose may be administered Review of Systems General / Constitutional: No: Fever Eyes: No: Visual changes HENT: Positive: Sore Throat, No: Headaches Cardiovascular: No: Chest Pain or Discomfort Respiratory: No: Shortness of Breath Gastrointestinal: No: Abdominal Pain Genitourinary: No: Dysuria Musculoskeletal: No: Pain Skin: No Rash Neurologic: No: Weakness Psychiatric: No: Depression Endocrine: No: Polydipsia Hematologic/Lymphatic: No: Easy Bruising Physical Exam Narrative GENERAL: Well-nourished, well-developed patient in no apparent distress. SKIN: Focused skin assessment reveals no rash and nodules. Skin is Warm and dry. HEAD: Atraumatic. Normocephalic. EYES: Pupils equal and round. No scleral icterus. No injection or drainage. ENT: No nasal bleeding or discharge. Mucous membranes pink and moist. Oral cavity is clear NECK: Trachea midline. No JVD. CARDIOVASCULAR: Regular rate and rhythm. No murmur appreciated. RESPIRATORY: No accessory muscle use. Clear to auscultation. Breath sounds equal bilaterally. GASTROINTESTINAL: Abdomen soft, non-tender, nondistended. Hepatic and splenic margins not palpable. MUSCULOSKELETAL: No obvious deformities. No clubbing. No cyanosis. No edema. NEUROLOGICAL: Awake and alert. No obvious cranial nerve deficits. Motor grossly within normal limits. Normal speech. PSYCHIATRIC: Appropriate mood and affect; insight and judgment normal. Data Data Last Documented VS Vital Signs Date Time Temp Pulse Resp B/P (MAP) Pulse Ox O2 Delivery O2 Flow Rate FiO2 01/14/18 17:45 98.0 81 16 110/61 (77) 98 Orders Orders Ed Discharge Order (01/14/18 18:39) [facility] Medical Decision Making Medical Screen Exam Complete: Yes Emergency Medical Condition: Yes Medical Record Reviewed: Yes Differential Diagnosis Pharyngeal foreign body, esophageal foreign body, pharyngitis Narrative Course I have reviewed the patient's electronic medical record. Patient's exam is normal. She is in no distress. I do not see emergent indication to bring in team for endoscopy I suggest outpatient ENT follow-up for consideration of rhino laryngoscopy to look for structural abnormality I suggested Magic mouthwash for symptom relief which she declines she does not want any prescription medications I think this is likely to dissolve on its own Diagnosis Primary Impression: Pharyngeal foreign body Qualified Codes: T17.208A - Unspecified foreign body in pharynx causing other injury, initial encounter Additional Instructions: Follow-up with ENT Med/Other Pt SpecificInfo: Other Disposition: 01 DISCHARGE HOME Condition: Stable Brian Kendall MD Jan 14, 2018 19:03
== END 2018-01-14 19:39 | disposition home or self-care (01) ==
LOC: NEPE 17:28
DX: T17.208A Unspecified foreign body in pharynx causing other injury, initial encounter (principal)
CPT/HCPCS: 99281